=== PATIENT | male | born 1950 | race Caucasian/White ===

== ENCOUNTER 2020-10-20 19:54 | Emergency (ER) | payer MEDICARE ==
[~2020-10-20 19:54] MED LIST: AMLODIPINE BESY10 MG PO; ANORO ELLIPTA1 EACH INH; ASPIRIN CHEWABL81 MG PO; ATORVASTATIN CA20 MG PO; AZITHROMYCIN250 MG PO; COLESTID 1GM TAB1 GM PO; FENOFIBRATE48 MG PO; FENOFIBRIC ACID35 MG PO; GLUCOPHAGE1000 MG PO; HYDROCHLOROTHIA50 MG PO; MUCINEX 600MG600 MG PO; NORCO 5-325 TA1 EACH PO; OMEPRAZOLE40 MG PO; PERCOCET 5/3251 TAB PO; POTASSIUM CHLO10 MEQ PO; PROAIR HFA8.5 GM INH; TOPROL XL100 MG PO; VALSARTAN-HCTZ1 EAC1 PO; VALSARTAN160 MG PO; XARELTO10 MG PO; ZOCOR40 MG PO; ZOFRAN4 MG PO
[2020-10-20 20:35] LABS: BASOPHIL 1.6 % (0-2); EOSINOPHIL 6.9 % (0-7); HCT 25.1 % (42.0-52.0); LYMPHOCYTE 20.6 % (15-48); MCH 29.4 pg (25.0-31.0); MCHC 31.9 g/dL (32.0-36.0); MCV 92.3 fL (78.0-100.0); MONOCYTE 8.1 % (0-12); MPV 9.7 fL (6.0-9.5); NEUTROPHIL 62.3 % (41-80); NRBC 0; PLT 366 K/uL (150-400); RBC 2.72 M/uL (4.70-6.00); RDW 13.7 % (11.5-14.0); WBC 9.3 K/uL (4.0-10.5)
[2020-10-20 20:39] LABS: INR 1.14 (0.9-1.2); PROTHROMBIN TIME 13.9 SECONDS (11.4-13.6); PTT 30.1 SECONDS (22.2-34.7)
[2020-10-20 20:47] LABS: ALBUMIN 3.6 g/dL (3.4-5.0); BILIRUBIN - DIRECT 0.1 mg/dL (0.00-0.20); BILIRUBIN - TOTAL 0.3 mg/dL (0.2-1.0); BUN/CREAT RATIO (CALC) 13.8 RATIO; CREATININE 1.23 mg/dL (0.67-1.17); GLOBULIN (CALCULATION) 3.6 g/dL; POTASSIUM 3.9 mmol/L (3.5-5.1); TOTAL PROTEIN 7.2 g/dL (6.4-8.2)
[2020-10-20 20:55] LABS: PRO-BNP 2295 pg/mL (<125)
[2020-10-20 21:57] LABS: BILIRUBIN NEGATIVE (NEGATIVE); BLOOD TRACE-INTACT Ery/uL (NEGATIVE); CLARITY CLEAR (CLEAR); COLOR YELLOW (YELLOW); GLUCOSE (U) TRACE mg/dL (NORMAL); LEUKOCYTES NEGATIVE Leu/uL (NEGATIVE); NITRITE NEGATIVE (NEGATIVE); PROTEIN 1+ mg/dL (NEGATIVE); UROBILINOGEN 0.2 mg/dL (0.2-1.0)
== END 2020-10-21 00:01 | disposition home or self-care (01) ==
LOC: FER 19:54
PROVIDERS: Student in an Organized Health Care Education/Training Program
DX: D64.9 Anemia, unspecified (principal); E11.9 Type 2 diabetes mellitus without complications; I10 Essential (primary) hypertension; J44.9 Chronic obstructive pulmonary disease, unspecified; Z20.822 Contact with and (suspected) exposure to COVID-19; J90 Pleural effusion, not elsewhere classified; F17.210 Nicotine dependence, cigarettes, uncomplicated; Z95.4 Presence of other heart-valve replacement; Z79.84 Long term (current) use of oral hypoglycemic drugs
CPT/HCPCS: 36415; 71045; 71275; 80048; 80076; 81001; 83880; 84145; 84484; 85025; 85610; 85730; 93005; Q9967; U0002

== ENCOUNTER 2020-12-21 21:16 | Day surgery (SDCO) | payer MEDICARE ==
[~2020-12-21] VITALS: Ht 172.7 cm; Wt 109.6 kg
[2020-12-21 22:23] LABS: BASOPHIL 2.3 % (0-2); EOSINOPHIL 8.1 % (0-7); HCT 27.8 % (42.0-52.0); HGB 8.1 g/dl (13.2-18.0); LYMPHOCYTE 23.5 % (15-48); MCHC 29.1 g/dL (32.0-36.0); MONOCYTE 8.5 % (0-12); MPV 10.6 fL (6.0-9.5); NEUTROPHIL 57.2 % (41-80); NRBC 0.8; PLT 365 K/uL (150-400); RBC 3.52 M/uL (4.70-6.00)
[2020-12-21 22:42] LABS: ALBUMIN 3.7 g/dL (3.4-5.0); BILIRUBIN - TOTAL 0.5 mg/dL (0.2-1.0); BUN/CREAT RATIO (CALC) 9.9 RATIO; CREATININE 1.61 mg/dL (0.67-1.17); GLOBULIN (CALCULATION) 3.7 g/dL; POTASSIUM 4.3 mmol/L (3.5-5.1); TOTAL PROTEIN 7.4 g/dL (6.4-8.2)
[2020-12-21 22:49] LABS: PRO-BNP 2918 pg/mL (<125)
[2020-12-22] MEDS ORDERED: LASIX20 MG PO (05:12)
[2020-12-22] MEDS ORDERED: VITAMIN D250 MC1 PO (05:25)
[2020-12-22] MEDS ORDERED: CLOPIDOGREL75 MG PO (05:36)
[2020-12-22] MEDS ORDERED: JARDIANCE10 MG PO (05:39)
[2020-12-22] MEDS ORDERED: VENTOLIN HFA IN18 GM INH (05:44)
[2020-12-22 06:34] LABS: HCT 27.1 % (42.0-52.0); HGB 7.8 g/dl (13.2-18.0); MCH 22.8 pg (25.0-31.0); MCHC 28.8 g/dL (32.0-36.0); MCV 79.2 fL (78.0-100.0); MPV 10.3 fL (6.0-9.5); RBC 3.42 M/uL (4.70-6.00); RDW 16.7 % (11.5-14.0)
[2020-12-22 06:50] LABS: IRON % SATURATION 2.9 %SAT (20-50)
[2020-12-22 07:18] LABS: ALBUMIN 3.8 g/dL (3.4-5.0); BILIRUBIN - TOTAL 0.5 mg/dL (0.2-1.0); BUN/CREAT RATIO (CALC) 10.6 RATIO; CREATININE 1.51 mg/dL (0.67-1.17); FOLIC ACID (SERUM) 16.2 ng/mL (8.6-58.9); GLOBULIN (CALCULATION) 3.8 g/dL; MAGNESIUM 2.1 mg/dL (1.8-2.4); POTASSIUM 3.8 mmol/L (3.5-5.1); TOTAL PROTEIN 7.6 g/dL (6.4-8.2)
[2020-12-23 06:17] LABS: BASOPHIL 2.1 % (0-2); EOSINOPHIL 7.2 % (0-7); HCT 26.8 % (42.0-52.0); HGB 7.7 g/dl (13.2-18.0); LYMPHOCYTE 20.9 % (15-48); MCH 22.5 pg (25.0-31.0); MCHC 28.7 g/dL (32.0-36.0); MCV 78.4 fL (78.0-100.0); MPV 10.4 fL (6.0-9.5); NEUTROPHIL 60.6 % (41-80); NRBC 0.9; PLT 303 K/uL (150-400); RBC 3.42 M/uL (4.70-6.00); RDW 16.8 % (11.5-14.0); WBC 8.1 K/uL (4.0-10.5)
[2020-12-23 06:35] LABS: BUN/CREAT RATIO (CALC) 14.2 RATIO; CREATININE 1.62 mg/dL (0.67-1.17); POTASSIUM 4.3 mmol/L (3.5-5.1)
[2020-12-24 06:25] LABS: BASOPHIL 1.9 % (0-2); EOSINOPHIL 6.8 % (0-7); HCT 29.7 % (42.0-52.0); HGB 8.7 g/dl (13.2-18.0); LYMPHOCYTE 19.9 % (15-48); MCH 23.1 pg (25.0-31.0); MCHC 29.3 g/dL (32.0-36.0); MONOCYTE 8.8 % (0-12); MPV 10.6 fL (6.0-9.5); NEUTROPHIL 61.6 % (41-80); NRBC 1.4; PLT 311 K/uL (150-400); RBC 3.76 M/uL (4.70-6.00); RDW 16.8 % (11.5-14.0); WBC 7.8 K/uL (4.0-10.5)
[2020-12-24 06:52] LABS: BUN/CREAT RATIO (CALC) 19.4 RATIO; CREATININE 1.44 mg/dL (0.67-1.17); POTASSIUM 4.4 mmol/L (3.5-5.1)
[2020-12-24] MEDS ORDERED: BUMEX1 MG PO (11:25)
--- NOTE | 2020-12-24 14:50 | NUR ---
PT REQUIRED HOME O2. [facility] DELIVERED A TRAVEL TANK AND HOME O2. DR. CANO DECIDED THAT PT WOULD NEED HH. SPOKE WITH PT DAUGHTER AND SHE ADVISED THEY WANTED [facility]. TC TO THOM WITH [facility] AND THEY ACCEPTED PT. FAXED CLINICALS TO [facility].
== END 2020-12-24 14:27 | disposition home or self-care (01) ==
LOC: FER 21:16 → FMS 12-22 03:23
PROVIDERS: Allergy & Immunology Allergy; Emergency Medicine; Internal Medicine; Internal Medicine Cardiovascular Disease; Nurse Practitioner; ADMIT Internal Medicine
DX: I11.0 Hypertensive heart disease with heart failure (principal); I50.9 Heart failure, unspecified; J96.21 Acute and chronic respiratory failure with hypoxia; J43.9 Emphysema, unspecified; D50.9 Iron deficiency anemia, unspecified; I25.10 Atherosclerotic heart disease of native coronary artery without angina pectoris; E78.5 Hyperlipidemia, unspecified; G47.33 Obstructive sleep apnea (adult) (pediatric); K21.9 Gastro-esophageal reflux disease without esophagitis; E11.9 Type 2 diabetes mellitus without complications; M54.9 Dorsalgia, unspecified; G89.29 Other chronic pain; M19.90 Unspecified osteoarthritis, unspecified site; E55.9 Vitamin D deficiency, unspecified; F17.210 Nicotine dependence, cigarettes, uncomplicated; Z79.82 Long term (current) use of aspirin; Z79.4 Long term (current) use of insulin; Z79.899 Other long term (current) drug therapy; Z20.822 Contact with and (suspected) exposure to COVID-19; Z95.1 Presence of aortocoronary bypass graft; Z96.643 Presence of artificial hip joint, bilateral; Z90.49 Acquired absence of other specified parts of digestive tract; Z87.01 Personal history of pneumonia (recurrent); Z95.2 Presence of prosthetic heart valve; I35.9 Nonrheumatic aortic valve disorder, unspecified
CPT/HCPCS: 36415; 36430; 71045; 71046; 71275; 80048; 80053; 80061; 82607; 82728; 82746; 82962; 83036; 83540; 83550; 83735; 83880; 84484; 85025; 85379; 86850; 86900; 86901; 86922; 93005; 94640; 94760; G0378; J1940; J2916; J7040; P9016; Q9967; U0002

== ENCOUNTER → 2021-03-05 | Day surgery (SDC) | payer MEDICARE ==
[~2021-03-05] VITALS: Ht 172.7 cm; Wt 105.5 kg
[~2021-03-05] MED LIST changes: +BUMEX1 MG PO; +CLOPIDOGREL75 MG PO; +JARDIANCE10 MG PO; +LASIX20 MG PO; +VENTOLIN HFA IN18 GM INH; +VITAMIN D250 MC1 PO
[2021-03-05 08:28] LABS: HCT 39.5 % (42.0-52.0); HGB 12.4 g/dl (13.2-18.0); MCH 26.1 pg (25.0-31.0); MCHC 31.4 g/dL (32.0-36.0); MCV 83.2 fL (78.0-100.0); RBC 4.75 M/uL (4.70-6.00); RDW 24.3 % (11.5-14.0); WBC 5.9 K/uL (4.0-10.5)
[2021-03-05 08:47] LABS: BUN/CREAT RATIO (CALC) 11.1 RATIO; CREATININE 1.26 mg/dL (0.67-1.17); POTASSIUM 3.5 mmol/L (3.5-5.1)
== END | disposition home or self-care (01) ==
LOC: FAS 07:20
PROVIDERS: Surgery
DX: D50.9 Iron deficiency anemia, unspecified (principal); K20.90 Esophagitis, unspecified without bleeding; K29.50 Unspecified chronic gastritis without bleeding; K31.9 Disease of stomach and duodenum, unspecified; K57.30 Diverticulosis of large intestine without perforation or abscess without bleeding; I13.0 Hypertensive heart and chronic kidney disease with heart failure and stage 1 through stage 4 chronic kidney disease, or unspecified chronic kidney disease; E11.22 Type 2 diabetes mellitus with diabetic chronic kidney disease; N18.9 Chronic kidney disease, unspecified; I50.9 Heart failure, unspecified; E78.00 Pure hypercholesterolemia, unspecified; E78.5 Hyperlipidemia, unspecified; I25.2 Old myocardial infarction; J44.9 Chronic obstructive pulmonary disease, unspecified; G47.33 Obstructive sleep apnea (adult) (pediatric); F17.200 Nicotine dependence, unspecified, uncomplicated; Z79.01 Long term (current) use of anticoagulants; Z79.82 Long term (current) use of aspirin; Z79.84 Long term (current) use of oral hypoglycemic drugs; Z79.899 Other long term (current) drug therapy; Z95.1 Presence of aortocoronary bypass graft; Z96.652 Presence of left artificial knee joint; Z96.642 Presence of left artificial hip joint
CPT/HCPCS: 36415; 80048; J2704; J7120